=== PATIENT | female | born 1995 | race Caucasian/White ===

== ENCOUNTER 2022-09-26 01:15 | Emergency (ER) | payer OTHER ==
[~2022-09-26] VITALS: Ht 167.6 cm; Wt 90.0 kg
[~2022-09-26 01:15] MED LIST: LEVO75TA4 PO; PREN1TAB80 PO
[2022-09-26] MEDS ORDERED: LIDOCAINE 1% 10 ML VIAL SQ ONE (02:30)
[2022-09-26 03:02] VITALS: BP 119/68; PULSE 65; RESP 16; TEMP 97.8
== END 2022-09-26 03:02 | disposition home or self-care (01) ==
LOC: EMS 01:17
DX: S61.411A Laceration without foreign body of right hand, initial encounter (principal); E03.9 Hypothyroidism, unspecified; W45.8XXA Other foreign body or object entering through skin, initial encounter; Y93.G1 Activity, food preparation and clean up; Y92.89 Other specified places as the place of occurrence of the external cause; Y99.8 Other external cause status
CPT/HCPCS: 99282; 12002; J3490

== ENCOUNTER 2023-09-22 09:33 | Emergency (ER) | payer OTHER ==
[~2023-09-22] VITALS: Ht 167.6 cm; Wt 90.9 kg
[2023-09-22] MEDS ORDERED: LEVO125 PO (09:39)
[2023-09-22 10:03] LABS: APPEARANCE,URINE CLEAR (CLEAR); BILIRUBIN,URINE NEGATIVE (NEGATIVE); COLOR,URINE LIGHT YELLOW (YELLOW); GLUCOSE, URINE (UA) NEGATIVE (NEGATIVE); KETONES,URINE NEGATIVE (NEGATIVE); LEUKOCYTE ESTERASE ,URINE LARGE (NEGATIVE); NITRATE,URINE NEGATIVE (NEGATIVE); OCCULT BLOOD,URINE NEGATIVE (NEGATIVE); PROTEIN,URINE NEGATIVE (NEGATIVE); SPECIFIC GRAVITIY, URINE 1.015 (1.003-1.030); UROBILINOGEN,URINE <=1.0 mg/dL (<=1.0)
[2023-09-22 10:12] LABS: RBC,URINE 0-2 /HPF (0-2); WBC,URINE 51-100 /HPF (0-5)
[2023-09-22 10:13] LABS: BACTERIA,URINE Many /HPF (None Seen); SQUAMOUS EPITHELIAL CELL,UR Moderate /LPF (None Seen)
[2023-09-22 10:19] LABS: BASOPHILS % (AUTO) 0.4 % (0.0-2.0); EOSINOPHILS % (AUTO) 3.3 % (1.0-6.0); HEMOGLOBIN 13.1 g/dL (12.0-16.0); LYMPHOCYTES # (AUTO) 2.2 K/uL (1.0-4.8); MEAN CORPUSCULAR HEMOGLOBIN 28.7 pg (26.0-34.0); MEAN CORPUSCULAR HGB CONC 32.8 G/dL (31.0-37.0); MEAN CORPUSCULAR VOLUME 88 fL (80-100); MONOCYTES # (AUTO) 0.5 K/uL (0.1-1.0); MONOCYTES % (AUTO) 6.8 % (2.0-9.0); NEUTROPHILS # (AUTO) 3.9 K/uL (1.8-7.7); NEUTROPHILS % (AUTO) 57.5 % (40.0-70.0); PLATELET COUNT (AUTO) 256 K/uL (150-450); RED BLOOD CELL COUNT(AUTO) 4.56 MIL/uL (4.00-5.20); RED CELL DISTRIBUTION WIDTH 13.8 % (11.5-14.5); WHITE BLOOD COUNT (AUTO) 6.8 K/uL (4.5-11.0)
[2023-09-22 10:30] LABS: ANION GAP 10 mmol/L (8-16); CALCIUM, TOTAL 9.1 mg/dL (8.8-10.5); CARBON DIOXIDE 29 mmol/L (22-29); CHLORIDE 102 mmol/L (98-107); CREATININE 0.81 mg/dL (0.60-1.30); GLOMERULAR FILTR. RATE CALC > 60 mL/min (>60); GLUCOSE,RANDOM 95 mg/dL (70-110); POTASSIUM 4.2 mmol/L (3.5-5.1); SODIUM SERUM 141 mmol/L (136-145); UREA NITROGEN, BLOOD 10 mg/dL (7-18)
[2023-09-22 11:12] VITALS: BP 123/79; PULSE 83; RESP 18; TEMP 98
[2023-09-22] MEDS ORDERED: CEPH-558 PO (11:30)
[2023-09-22] MEDS: CEPHALEXIN MONOHYDRATE 500 MG CAPSULE PO ONE (11:36)
[2023-09-22] MEDS: ACETAMINOPHEN 325 MG TABLET PO ONE (11:37)
== END 2023-09-22 11:58 | disposition home or self-care (01) ==
LOC: EMS 09:33
DX: N39.0 Urinary tract infection, site not specified (principal); R51.9 Headache, unspecified; R30.0 Dysuria; R35.0 Frequency of micturition; R07.9 Chest pain, unspecified
CPT/HCPCS: 71045; 80048; 81001; 84703; 85025; 87086; 87186; 99284; 36415-L1; 36415-TC